=== PATIENT | female | born 1990 ===

== ENCOUNTER 2018-12-01 08:34 | Day surgery (SDC) | payer OTHER ==
[~2018-12-01 08:34] MED LIST: Buffered Lidocaine 1% SYRIN* 1 ML/SYRINGE INTRADERM ONE; Dexamethasone TAB* 4 MG PO ONE; DiMENhydriNATE IV* 50 MG/ML VIAL IV PUSH PRN; Famotidine IV* 10 MG/ML 2 ML (20 mg) IV ONE; Lactated Ringers 1000 ML Bag* 1,000 ML IV SCH; Naloxone* 0.4 MG/ML 1 ML VIAL IV PRN; Ondansetron TAB* 4 MG PO ONE; PROCHLORPERAZINE INJ 5 MG/ML 2 ML VIAL IV PRN; fentaNYL* 50 MCG/ML 2 ML VIAL (100 MCG VIAL) IV PRN; oxyCODONE/Acetamin 5/325 MG* TAB PO PRN
[2018-12-01] MEDS ORDERED: Dexamethasone TAB* 4 MG ONE (09:42)
[2018-12-01] MEDS ORDERED: Ondansetron ODT TAB* 4 MG ONE (09:42)
[2018-12-01] MEDS ORDERED: Famotidine IV* 10 MG/ML 2 ML (20 mg) ONE (09:43)
[2018-12-01] MEDS ORDERED: fentaNYL* 50 MCG/ML 2 ML VIAL (100 MCG VIAL) ONE (10:56)
[2018-12-01] MEDS ORDERED: Midazolam* 1 MG/ML 5 ML VIAL (5 MG) ONE (10:56)
[2018-12-01] MEDS ORDERED: Propofol* 10 MG/ML 20 ML BTL ONE (10:56)
[2018-12-01] MEDS ORDERED: Lidocaine 1% INJ* 10 MG/ML 30 ML SDV ONE (11:06)
[2018-12-01 11:53] VITALS: BP 113/63
--- NOTE | 2018-12-01 14:04 | OP ---
DATE OF OPERATION: 12/01/18 [facility] DATE OF : 89 SURGEON: Yesika Lynn MD. DRY KILN LOADER: SAMMIE Romero ANESTHESIA: Local MAC. PRE-OP DIAGNOSIS: Right carpal tunnel syndrome. POST-OP DIAGNOSIS: Right carpal tunnel syndrome. OPERATIVE PROCEDURE: Right carpal tunnel release. INDICATIONS FOR PROCEDURE: Marina is a 28-year-old female with numbness and tingling in the median nerve distribution of the right hand. She presents for right carpal tunnel release. ESTIMATED BLOOD LOSS: Zero. TOURNIQUET TIME: 5 minutes. DESCRIPTION OF PROCEDURE: The patient was brought to the operating room, was given a sedation anesthetic and a local infiltration of 10 cc of 1% plain lidocaine in the palm of her right hand. The skin of her right hand and forearm was prepped and draped in the usual sterile fashion. The hand and forearm were exsanguinated and the tourniquet elevated to 250 mmHg. A longitudinal incision was made in the palm in line with the ring finger. We dissected through the subcutaneous tissue down to the transverse carpal ligament. The ligament was divided sharply with a knife and then more proximally with the scissors. The nerve was dissected free from the surrounding tissue and there was an area of moderate compression at the mid portion of the ligament. The wound was irrigated and the skin edges were reapproximated with 4-0 nylon suture. The wound was dressed with Xeroform, 4x4 , Webril, and an Mehdi wrap. The patient tolerated the procedure well and was brought to the recovery room in good condition. [id number]/[facility] #: [id number] [facility]ITAL[facility]
== END 2018-12-01 12:18 | disposition home or self-care (01) ==
LOC: OREAST 08:34
PROVIDERS: ATTEND Orthopaedic Surgery
DX: G56.01 Carpal tunnel syndrome, right upper limb (principal)
CPT/HCPCS: 81025; A9270-GY; J2250; J2704; J3010; J8540

== ENCOUNTER 2018-12-22 06:17 | Day surgery (SDC) | payer OTHER ==
[2018-12-22] MEDS ORDERED: fentaNYL* 50 MCG/ML 2 ML VIAL (100 MCG VIAL) ONE (07:11)
[2018-12-22] MEDS ORDERED: Propofol* 10 MG/ML 20 ML BTL ONE ×2 (07:12→07:52)
[2018-12-22] MEDS ORDERED: Lidocaine 1% INJ* 10 MG/ML 30 ML SDV ONE (07:13)
[2018-12-22] MEDS ORDERED: Lidocaine 2% PF * 5 ML VIAL ONE (07:52)
[2018-12-22] MEDS ORDERED: Naloxone* 0.4 MG/ML 1 ML VIAL IV PRN (08:13)
[2018-12-22 08:52] VITALS: BP 119/76
--- NOTE | 2018-12-22 16:20 | OP ---
DATE OF OPERATION: 12/22/18 [facility] DATE OF : [birth year] SURGEON: Yesika Lynn MD PROCESS MOLD TECHNICIAN: SAMMIE Romero. ANESTHESIA: Local MAC. PRE-OP DIAGNOSIS: Left wrist ganglion. POST-OP DIAGNOSIS: Left wrist ganglion. OPERATIVE PROCEDURE: Removal of left wrist ganglion. ESTIMATED BLOOD LOSS: Zero. TOURNIQUET TIME: Approximately 10 minutes. INDICATIONS FOR PROCEDURE: Marina is a 28-year-old female who has a painful mass on the dorsal aspect of her left wrist; she presents for removal. DESCRIPTION OF PROCEDURE: The patient was brought to the operating room, was given a sedation anesthetic and a local infiltration of total of 20 cc of 1% plain lidocaine. Skin of her left upper extremity was prepped and draped in the usual sterile fashion. The hand and forearm were exsanguinated and the tourniquet elevated to 250 mmHg. A transverse incision was made centered over the left wrist mass. We dissected through the subcutaneous tissue down to the ganglion cyst. Extensor tendons were retracted by the metal forger's assistant, Kayla Castro. The mass was traced down to the wrist joint capsule and was removed with a small portion of the wrist joint capsule and its stalk; this was overlying the scapholunate ligament. The edges of the capsule and the dorsal aspect of the scapholunate ligament were cauterized with the Bovie. The wound was irrigated and skin edges were reapproximated with 4-0 nylon suture. The wound was dressed with Xeroform, 4x4, Webril and an Mehdi wrap. The patient tolerated the procedure well and was brought to the recovery room in good condition. [id number]/[facility] #: [id number] [facility]
== END 2018-12-22 08:34 | disposition home or self-care (01) ==
LOC: OREAST 06:17
PROVIDERS: ATTEND Orthopaedic Surgery
DX: M67.432 Ganglion, left wrist (principal); K21.9 Gastro-esophageal reflux disease without esophagitis; F41.8 Other specified anxiety disorders
CPT/HCPCS: 81025; 88304; J2704; J3010